=== PATIENT | male | born 1980 | race Caucasian/White ===

== ENCOUNTER 2017-03-19 19:23 | Inpatient (IN) | payer OTHER ==
--- NOTE | ~2017-03-19 | DS ---
Unit #: [id number] #: [id number] Patient: KERMIT LOPEZ [id number] [facility] [address] [place] [address] [id number] I MR#: [id number] NAME: KERMIT LOPEZ ROOM: P182 Age: 36 Sex: M Admission Date: 03/19/2017 : 1980 Discharge Date: 03/21/2017 Attending Physician: Roderick Nguyen M.D. Primary Care Physician: Generic Doctor Not In System DISCHARGE SUMMARY REASON FOR ADMISSION Opiate abuse and withdrawal. DIAGNOSTIC STUDIES Laboratory data remarkable for chloride 113, AST 40. Urine drug screen positive for opiates. HOSPITAL COURSE The patient was admitted to the inpatient unit on February 16 and discharged on 03/21/17. The patient was treated on the inpatient unit, with group therapy, individual therapy, detox protocol, detox monitoring. The patient responded well with the above modalities of treatment. Subsequently, the patient was discharged with a plan to follow up in outpatient program. At the time of discharge the patient was denying any suicidal ideation or any homicidal ideation. DISCHARGE MEDICATIONS None. DISCHARGE DIAGNOSES [place] I Opiate use disorder, severe, F11.20. Mood disorder, NOS, F32.9. [place] II Deferred. [place] III Asthma. Chronic pain. Herniated disc. Hepatitis C. [place] IV Psychosocial stressor. [place] V INSTRUCTIONS TO PATIENT The patient is to follow up in outpatient clinic and with social studies department chair. CONDITION AT DISCHARGE The patient was pleasant, cooperative, denied any psychotic symptoms or any suicidal ideation. PROGNOSIS Guarded. DIET AND ACTIVITY Unit #: [id number] #: [id number] Patient: KERMIT LOPEZ Diet and activity as tolerated. Dictated by... Aurora Nicolas/john TD: 03/23/2017 06:20 JOB #: [id number] DISCHARGE SUMMARY Page 1 of 1 X Roderick Nguyen MD X DISCHARGE SUMMARY
--- NOTE | ~2017-03-19 | HP ---
Unit #: [id number] #: [id number] Patient: KERMIT LOPEZ [id number] [place] [address] [id number] I MR#: [id number] NAME: KERMIT LOPEZ ROOM: P182 Age: 36 Sex: M Admission Date: 03/19/2017 : 1980 Attending Physician: Roderick Nguyen M.D. Admitting Physician: Roderick Nguyen M.D. Primary Care Physician: Generic Doctor Not In System HISTORY AND PHYSICAL HISTORY OF PRESENT ILLNESS The patient is a 36-year-old male admitted to [facility] on 03/19/2017 for suicidal ideation. PAST MEDICAL HISTORY Asthma. PAST SURGICAL HISTORY Bilateral ankle. SOCIAL HISTORY The patient is unemployed and homeless. He smokes half a pack of cigarettes daily and uses heroin on a daily basis. FAMILY MEDICAL HISTORY Noncontributory. ALLERGIES No known drug allergies. CURRENT MEDICATIONS The patient is not on any home medications. REVIEW OF SYSTEMS CONSTITUTIONAL: No fever or chills. HEENT: Denies any sore throat, ear pain or runny nose. CARDIOVASCULAR: Denies chest pain, irregular heart rhythm or palpitations. CHEST: Denies shortness of breath or cough. No hemoptysis. GASTROINTESTINAL: Denies nausea, vomiting, diarrhea or chronic constipation. ENDOCRINE: Denies history of increased thirst or urination. No recent significant weight loss or gain. GENITOURINARY: Denies dysuria, frequency, or hematuria. SKIN: Denies any rashes. HEMATOLOGIC: Denies history of increased bleeding or bruising. MUSCULOSKELETAL: Denies any hot, swollen joints. No generalized muscle pain. NEUROLOGIC: Denies problems with vision or speech. No frequent, severe headaches. No numbness, tingling or weakness in any extremities. Denies loss of bladder or bowel control. PHYSICAL EXAMINATION GENERAL: He is awake, alert, and oriented in no acute distress. Unit #: [id number] #: [id number] Patient: KERMIT LOPEZ VITAL SIGNS: Temperature 97.7, heart rate 76, respirations 13, blood pressure 127/74. HEIGHT: 6 feet 2. WEIGHT: 192 pounds. SKIN: Warm and dry without rash or lesion. HEENT: Normocephalic. TMs not viewed. Oral and nasal passages clear. Conjunctivae clear. PERRLA. EOMs intact. NECK: Supple without lymphadenopathy or thyromegaly. HEART: Regular rate and rhythm without murmur. LUNGS: Clear. ABDOMEN: Soft, nontender. : Not done. EXTREMITIES: No evidence of cyanosis, clubbing or edema. Moves all without focal deficit. NEUROLOGICAL: Grossly within normal limits. Cranial Nerves: II: Visual nelson are intact. III, IV AND : Extraocular movements are intact. Pupils are equal, round and reactive to light. V: Facial sensation is grossly normal. VII: Facial movements and expression are normal. VIII: Auditory acuity grossly intact. IX, X: Uvula is midline. Phonation is normal. XI: Patient shrugs shoulders and turns head normally. XII: Tongue protrudes in the midline. Sensory and Motor Function: Sensory and motor sensation is grossly normal. Motor: moves all extremities well. IMPRESSION 1. Psychiatric admission. 2. Heroin abuse. 3. Nicotine dependence. 4. Asthma. RECOMMENDATIONS PSYCHIATRIC: Per psychiatrist. MEDICAL: No contraindication to participate in this facility activities. MEDICAL PROGNOSIS Good. MEDICAL CONDITION Stable. Dictated by... Jeff Esteban TD: 03/20/2017 14:59 JOB #: [id number] Unit #: [id number] #: [id number] Patient: KERMIT LOPEZ HISTORY AND PHYSICAL Page 1 of 1 X NORA GRANADOS APRN HISTORY AND PHYSICAL
--- NOTE | ~2017-03-19 | PA ---
Unit #: [id number] #: [id number] Patient: JARROD LOPEZ [id number] [place] [address] [id number] I MR#: [id number] NAME: JARROD LOPEZ ROOM: P182 Age: 36 Sex: M Admission Date: 03/19/2017 : 1980 Date of Assessment: 03/20/2017 Attending Physician: Roderick Nguyen M.D. Admitting Physician: Roderick Nguyen M.D. Primary Care Physician: Generic Doctor Not In System PSYCHIATRIC ASSESSMENT REASON FOR ADMISSION Opioid abuse and withdrawal. HISTORY OF PRESENT ILLNESS Mr. Jarrod Lopez is a 36-year-old male, presented with the above-mentioned complaint. The patient has a history of previous treatment as an outpatient for detox in 2016. The patient currently unemployed, poor support system, presented seeking treatment for substance abuse and withdrawal. The patient reported using 0.5 g to 1 g of heroin daily. He reported suicidal ideation with a plan to drive and kill him. The patient denied any homicidal ideation auditory or visual hallucination. The patient diagnosed with opioid use disorder, mood disorder, has a history of asthma, chronic pain, herniated disk, hepatitis C. The patient reported tobacco use, age of onset 14; opioid, age of onset 23; methadone, age of onset 21. The patient's longest period of sobriety 10 years, last period of sobriety unknown. The patient reported history of blackout, history of hepatitis, IV drug abuse; currently withdrawal symptoms such as abdominal cramping, muscle cramping, headache, diaphoresis, swelling, diarrhea, restlessness. REVIEW OF SYSTEMS HEENT: Eyes, clear. Ears, nose, mouth, and throat; clear. CARDIOVASCULAR: Unremarkable. RESPIRATORY: Unremarkable. GI: Unremarkable. : Unremarkable. SKIN: Unremarkable. LYMPH NODE: Unremarkable. NEUROLOGIC: Unremarkable. ENDOCRINE: Unremarkable. HEMATOLOGIC: Unremarkable. ALLERGIC/IMMUNOLOGIC: Unremarkable. MUSCULOSKELETAL: Muscle strength and tone, no atrophy or abnormal movement. Gait normal. MENTAL STATUS EXAMINATION CONSTITUTIONAL: Measurement of vital signs; temperature is 98.3, pulse 101, respiratory rate 20. Height 6 feet 2 inches, weight 198 pounds. GENERAL APPEARANCE: The patient dressed casually. No facial deformity noted. MUSCULOSKELETAL: Please see above. PSYCHIATRIC EXAMINATION Unit #: [id number] #: [id number] Patient: JARROD LOPEZ Description of speech; rapid in rate. Description of thought process; goal directed. Description of association, intact. Description of abnormal psychotic thinking; the patient denied any hallucination, but guarded, paranoid, suicidal ideation, depression, substance abuse, paranoia. Description of the patient's judgment; concerning everyday activity, poor. Social situation, poor. Concerning psychiatric condition, poor. Complete mental status examination; oriented in time, place, and person. Recent and remote memory, fair. Attention span and concentration, fair. Language, able to name object and repeat phrases. Fund of knowledge, aware of current event and passive vocabulary intact. Mood and affect, sad and dysphoric. Insight and judgment, fair to poor. ASSETS AND LIABILITIES Assets, the patient is articulate and able to take care of his ADL. Liability, history of substance abuse and depression. ADMITTING DIAGNOSES Psychiatric: 1. Opioid use disorder, severe, F11.20. 2. Mood disorder, not otherwise specified, F32.9. Secondary diagnosis: Deferred. Medical diagnosis: Asthma, chronic pain, herniated disk, hepatitis C. Stressors: Psychosocial stressors. PSYCHIATRIC PLAN 1. Advised to admit the patient on the inpatient unit. Provide safe, supportive, and structured environment. 2. Ordered labs; CBC, CMP, UA, and UDS. 3. Precaution for self-harm, detox protocol, and detox monitoring. 4. The patient to attend all the programing on the inpatient unit with group therapy, individual therapy, chemical dependency group. TREATMENT GOAL To attain euthymic mood, gain insight into his problem, and learn coping skills. DISCHARGE PLAN Plan to stabilize the patient and consider followup in outpatient program. ESTIMATED LENGTH OF STAY 3 to 5 days. Dictated by... Aurora Nicolas/concepción TD: 03/21/2017 01:02 JOB #: [id number] Unit #: [id number] #: [id number] Patient: JARROD LOPEZ PSYCHIATRIC ASSESSMENT Page 1 of 1 X Roderick Nguyen MD X PSYCHIATRIC ASSESSMENT
[~2017-03-19 19:23] MED LIST: AMOXICILLIN500 M1 PO; LORTAB 7.5-5001 TAB PO; NAPROSYN500 MG PO; NEURONTIN800 MG PO; PEN-VEE K PO; PERCOCET10 PO; PREDNISONE PO; ROBAXIN500 MG PO; TYLENOL #3 PO; VICODIN 5/500 T1 TAB PO; VICODIN PO
[2017-03-20 12:19] LABS: BASOPHIL# 0.1 X10e3 (0-0.3); EOSINOPHIL# 0.2 X10e3 (0-0.7); EOSINOPHIL% 3.5 % (0.0-7.0); HEMATOCRIT 42.6 % (38.0-50.0); HEMOGLOBIN 14.4 gm/dL (13.0-16.0); LYMPHOCYTE# 2.5 X10e3 (1.0-3.5); LYMPHOCYTE% 38.2 % (17.0-45.0); MEAN CORPUSCULAR HGB CONC 33.7 g/dL (30-36); MEAN PLATELET VOLUME 7.7 FL (6.5-11.5); MONOCYTE# 0.5 X10e3 (0-1.0); MONOCYTE% 8.3 % (3.0-12.0); NEUTROPHIL# 3.2 X10e3 (1.5-7.1); PLATELET COUNT 226 X10e3 (140-420); RED BLOOD COUNT 4.64 X10e (3.90-5.60); RED CELL DISTRIBUTION WIDTH 13.2 % (11.0-15.5); WHITE BLOOD COUNT 6.5 X10e3 (4.0-10.5)
[2017-03-20 12:30] LABS: DIFF IND NO
[2017-03-20 12:33] LABS: ALBUMIN SERUM 4.1 g/dL (3.5-5.0); BILIRUBIN,TOTAL 1.2 mg/dL (0.2-2.0); BUN/CREATININE RATIO 23.33; CALCIUM SERUM 9.4 mg/dL (8.4-10.2); CREATININE SERUM 0.6 mg/dL (0.6-1.4); GLOM FILT RATE Estimated 127.6 mL/min (>60); POTASSIUM 3.7 mmol/L (3.5-5.1); PROTEIN TOTAL SERUM 6.9 g/dL (6.0-8.3)
[2017-03-21 11:36] LABS: URINE APPEARANCE CLEAR; URINE BILIRUBIN NEG (NEG); URINE BLOOD NEG (NEG); URINE COLOR YELLOW; URINE GLUCOSE NEG (NEG); URINE KETONE NEG (NEG); URINE LEUKOCYTE ESTERASE NEG (NEG); URINE NITRATE NEG (NEG); URINE PROTEIN NEG (NEG); URINE SPECIFIC GRAVITY 1.012 (1.003-1.035)
[2017-03-21 12:03] LABS: CULTURE INDICATED? NO
[2017-03-21 12:07] LABS: AMPHETAMINE NEG (NEG); BARBITURATES NEG (NEG); BENZODIAZEPINES NEG (NEG); COCAINE NEG (NEG); MARIJUANA NEG (NEG); OPIATES NEG (NEG); TRICYCLIC ANTIDEPRESSANTS NEG (NEG); U METHADONE NEG (NEG)
== END 2017-03-21 12:10 | disposition home or self-care (01) | DRG 897 ==
LOC: P1E 21:26
PROVIDERS: Psychiatry & Neurology Psychiatry
DX: F11.20 Opioid dependence, uncomplicated (principal); F39 Unspecified mood [affective] disorder; F32.9 Major depressive disorder, single episode, unspecified; J45.909 Unspecified asthma, uncomplicated; G89.29 Other chronic pain; B19.20 Unspecified viral hepatitis C without hepatic coma; Z56.0 Unemployment, unspecified; Z59.0 Homelessness; F11.10 Opioid abuse, uncomplicated
CPT/HCPCS: 80053; 80307; 81003; 85025